=== PATIENT | female | born 1985 ===

== ENCOUNTER 2024-10-09 05:15 | Day surgery (SDC) | payer OTHER ==
[2024-10-04 10:46] LABS: URINE APPEARANCE Clear; URINE BILIRRUBIN Negative (NEGATIVE); URINE BLOOD Negative; URINE COLOR Yellow; URINE GLUCOSE Negative (NEGATIVE); URINE KETONE Negative (NEGATIVE); URINE LEUKOCYTE Negative; URINE NITRATE Negative; URINE PROTEIN Negative (NEGATIVE); URINE UROBILINOGEN 0.2 E.U./dl
[2024-10-04 10:50] LABS: URINE BACTERIA 685.3 uL (0.0-1933); URINE EPITHELIAL CELLS 10.6 uL (0.0-38.8)
[2024-10-04 10:51] LABS: HEMATOCRIT 42.9 % (36.0-45.00); HEMOGLOBIN 14.3 g/dL (12.0-15.00); MEAN CELL VOLUME 86.8 fL (80.00-100.00); MEAN CORPUSCULAR HEMOGLOBIN 28.9 pg (27.00-32.0); MEAN CORPUSCULAR HGB CONC 33.3 g/dl (32.0-36.0); PLATELET COUNT 225 K/uL (150-450); RED BLOOD COUNT 4.94 M/uL (4.00-6.00); RED CELL DISTRIBUTION WIDTH 13.3 % (11.5-14.5)
[2024-10-04 11:06] LABS: URINE CAST 0.15 uL (0.0-1.40)
[2024-10-04 11:21] LABS: INR 0.99; PARTIAL THROMBOPLASTIN TIME 28.7 SECONDS (22.0-34.0); PROTHROMBIN TIME 10.8 SECONDS (9.0-11.5)
[2024-10-04 11:23] LABS: CREATININE SERUM 0.89 mg/dL (0.55-1.02); GFR 70.61; POTASSIUM 3.83 mEq/L (3.5-5.1)
[~2024-10-09 05:15] MED LIST: KETO10TA2 PO; ORPH100T PO
[2024-10-09] MEDS ORDERED: CEFAZOLIN SODIUM 1,000 MG VIAL IV SCH (08:15)
[2024-10-09] MEDS ORDERED: DEXAMETHASONE 4 MG TABLET PO ONE (08:15)
== END 2024-10-09 12:00 | disposition home or self-care (01) ==
LOC: CIR.AMB 05:15
PROVIDERS: ATTEND Surgery
DX: D35.1 Benign neoplasm of parathyroid gland (principal); E21.0 Primary hyperparathyroidism; I10 Essential (primary) hypertension